=== PATIENT | male | born 1995 | race Two or more races ===

== ENCOUNTER 2020-08-06 10:19 | Emergency (ER) | payer BC ==
[~2020-08-06] VITALS: Ht 175.3 cm; Wt 78.0 kg
[2020-08-06 10:20] VITALS: BP 143/91
[2020-08-06] MEDS ORDERED: ACETAMINOPHEN 325MG TABLET PO ONE (11:00)
[2020-08-06] MEDS ORDERED: BACITRACIN ZINC OINT UDPKT TOP ONE ×2 (11:00→14:00)
[2020-08-06] MEDS ORDERED: LIDOCAINE 1%/EPI 1:100,000 10 ML VIAL IJ ONE (11:00)
== END 2020-08-06 14:10 | disposition home or self-care (01) ==
LOC: ER 10:19
DX: S51.811A Laceration without foreign body of right forearm, initial encounter (principal); Z88.0 Allergy status to penicillin; W25.XXXA Contact with sharp glass, initial encounter; Y93.89 Activity, other specified; Y92.89 Other specified places as the place of occurrence of the external cause; Y99.8 Other external cause status
CPT/HCPCS: 12001; 73090; 99283; J3490